=== PATIENT | female | born 1995 | race Caucasian/White ===

== ENCOUNTER 2021-03-31 07:27 | Emergency (ER) | payer OTHER ==
[~2021-03-31] VITALS: Ht 170.2 cm; Wt 70.3 kg
[2021-03-31] MEDS ORDERED: LORAZEPAM INJ 2 MG/ML VIAL ONE ×2 (07:50→08:32)
[2021-03-31] MEDS ORDERED: LORAZEPAM INJ 2 MG/ML VIAL IM ONE ×2 (08:00→08:30)
--- NOTE | 2021-03-31 08:00 | NUR ---
Patient bib friend, admits on using ecstacy last night "2 tabs", hyperventilating. On room air, connected to the monitor and pulse ox. Kept comfortable, will continue to monitor accordingly.
[2021-03-31 12:17] VITALS: BP 132/81
--- NOTE | 2021-03-31 12:17 | NUR ---
Patient discharged to home in stable condition. Written and verbal after care instructions given. Patient verbalizes understanding of instruction.IV removed. Catheter intact and site benign. Pressure and 4x4 applied to site. No bleeding noted.
== END 2021-03-31 12:17 | disposition home or self-care (01) ==
LOC: ER 07:30
DX: F15.980 Other stimulant use, unspecified with stimulant-induced anxiety disorder (principal); Z60.2 Problems related to living alone
CPT/HCPCS: 96372 ×2; 99284; J2060 ×2